=== PATIENT | female | born 1960 | race Caucasian/White ===

== ENCOUNTER 2016-06-06 14:59 | Inpatient (IN) ==
--- NOTE | 2016-06-05 21:40 | Discharge Summary ---
<Chely Armstrong - Last Filed: 06/05/16 21:34> Date of Encounter: 06/05/16 - Discharge Medications Home Medications: Naproxen [Naprosyn] 500 mg PO BID PRN #15 tablet 04/27/15 [Rx] OxyCODONE Immed Rel [Roxicodone 5 MG] 5 mg PO Q6HR PRN #40 tablet 06/05/16 [Rx] Allergies/Adverse Reactions: Allergies acetaminophen [From Tylenol-Codeine #3] Allergy (Verified 04/27/15 15:21) Rash codeine [From Tylenol-Codeine #3] Allergy (Verified 04/27/15 15:21) Rash Primary care physician: Corwin Huizar MD - Patient Status Disposition: Home, Self-Care Condition: Good - Discharge Instructions Instructions: Open Reduction and Internal Fixation of a Hip Fracture (DC) Follow Up With: Corwin Huizar MD [Primary Care Provider] - - Hospital Course Hospital course: Ms. Fay is a 55 year old female - Time Spent with Patient Total time spent providing and/or coordinating discharge services: <Ricco Fletcher Linden - Last Filed: 06/07/16 06:31> Date of Encounter: 06/07/16 Time of Encounter: 06:30 - Discharge Diagnosis (1) Fracture of left hip Priority: Primary Status: Acute Qualifiers: Encounter type: initial encounter Fracture type: closed Qualified Code(s) : S72.002A - Fracture of unspecified part of neck of left femur, initial encounter for closed fracture (2) Hyperlipidemia Priority: Secondary Status: Chronic Qualifiers: Hyperlipidemia type: unspecified Qualified Code(s): E78.5 - Hyperlipidemia , unspecified (3) COPD (chronic obstructive pulmonary disease) Priority: Secondary Status: Chronic Qualifiers: COPD type: emphysema Emphysema type: unspecified Qualified Code(s): J43.9 - Emphysema, unspecified Primary care physician: Corwin Huizar MD - Patient Status Overall status at discharge: patient is progressing back to baseline - Hospital Course Hospital course: Ms. Fay is a 55 year old female The patient had an uneventful postoperative course. They received antibiotics and physical therapy and were discharged in stable condition. There will follow -up in the office in 2 weeks. Discharge June 06 - Time Spent with Patient Total time spent providing and/or coordinating discharge services:
--- NOTE | 2016-06-06 15:07 | History & Physical Report ---
Date of Encounter: 06/06/16 Time of Encounter: 15:06 24 Hour HP Update - Instructions Instructions: If the History and Physical is less than 30 days old and was completed prior to A.M. admission and or procedure and has NOT been updated on calendar day of procedure please complete this update prior to performing procedure. - Update Patient reports changes in Medical Condition: No Changes in assessment/condition: No Changes in Medication: No Preop tests/diagnostics Reviewed: Yes Surgery Remains Indicated: Yes Consent for Planned Operative Procedure(s) Verified: Yes - Pre-Operative Checklist Preoperative Checklist Indicated: No Prophylactic Antibiotic Ordered: Yes Is VTE Prophylaxis Indicated?: Yes
[2016-06-06] MEDS ORDERED: *HR* Propofol 200 MG/20 ML VIAL IVP ONE ×2 (15:08→15:59)
[2016-06-06] MEDS ORDERED: Lidocaine -MPF 2% 2 ML VIAL ONE (15:09)
[2016-06-06 15:45] LABS: Hematocrit 42.6 % (35.3-44.9); Hemoglobin 13.5 g/dL (11.5-15.4)
[2016-06-06] MEDS ORDERED: Famotidine 20 MG/2 ML VIAL IVP ONE (15:47)
--- NOTE | 2016-06-06 15:51 | Anesthesia Evaluation PreOp ---
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: Other (Migraines) Other Medical History: GERD Anesthesia History: No Prior Anesthetic Complications Alcohol Use: none Drug use: none Medications and Allergies Naproxen [Naprosyn] 500 mg PO BID PRN #15 tablet 04/27/15 [Rx] OxyCODONE Immed Rel [Roxicodone 5 MG] 5 mg PO Q6HR PRN #40 tablet 06/05/16 [Rx] Allergies acetaminophen [From Tylenol-Codeine #3] Allergy (Verified 04/27/15 15:21) Rash codeine [From Tylenol-Codeine #3] Allergy (Verified 04/27/15 15:21) Rash - Meds/Allergy Pre-op Review Medications Reviewed: Yes Allergies Reviewed: Yes Beta Blockers on Current Med List: No Anesthesia Results - Labs 06/06/16 15:29 Laboratory Tests 05/31/16 05/31/16 06/06/16 11:52 11:52 15:29 Hgb 13.5 Hct 42.6 Plt Count 361 Sodium 141 Potassium 3.7 Creatinine 0.77 - Imaging EKG: report reviewed (SR) Anesthesia Exam O2 Sat Height 1.68 m Weight 63.503 kg Height: 5'6 Weight: 140 lbs NPO (# of Hours): MN - HEENT Pupil (Motor): Pupils equal, EOMI Mallampati: II Teeth: Edentulous Oral Opening: Greater than 3 - BRAKE OPERATOR HELPER LOC: Oriented BRAKE OPERATOR HELPER Motor: Normal RUE, Normal LUE, Normal RLE, Normal LLE, Normal Face BRAKE OPERATOR HELPER Sensory: Normal: RUE, LUE, RLE, LLE, Face - Cardiac Rhythm: Regular Murmur: None JVD: No Carotid Bruit: No - Pulmonary Breath Sounds: bilateral Clear Respiratory Effort: Symmetrical Anesthesia Assess/Plan ASA Score: 2 Modified Fairview Scale for Level of Consciousness: Cooperative, oriented, and tranquil Anesthetic Plan: General Monitoring Plan: Standard Monitors Recovery Plan: PACU (Discussed GA, agrees to proceed)
[2016-06-06] MEDS ORDERED: *HR* FentaNYL (PF) 100 MCG/2 ML VIAL ONE ×2 (15:58→16:42)
[2016-06-06] MEDS ORDERED: Lidocaine -MPF 4% 5 ML AMPUL ONE (15:59)
[2016-06-06] MEDS ORDERED: *HR* Midazolam HCl 2 MG/2 ML VIAL ONE (15:59)
[2016-06-06] MEDS ORDERED: Ringers Solution, Lactated 1,000 ML IVC SCH (16:00)
[2016-06-06] MEDS ORDERED: Albuterol 2.5 MG/3 ML NEBULIZER IH ONE (16:04)
[2016-06-06] MEDS ORDERED: CeFAZolin Pre 2,000 MG/100 ML 2,000 MG/100 ML BAG IVPB ONE (16:09)
[2016-06-06] MEDS ORDERED: *HR* Succinylcholine 200 MG/10 ML VIAL IVP ONE (16:35)
[2016-06-06] MEDS ORDERED: *HR* Morphine 10 MG/ML VIAL ONE (16:42)
[2016-06-06] MEDS ORDERED: Dexamethasone 4 MG/ML VIAL ONE (16:52)
[2016-06-06] MEDS ORDERED: Ondansetron 4 MG/2 ML VIAL ONE (16:52)
--- NOTE | 2016-06-06 17:08 | Orthopedic Operative Note ---
Date of procedure: 06/06/16 Pre-op diagnosis: Left hip fracture Post-op diagnosis: same Procedure: Procedure: Left hip open reduction intramedullary nail fixation Estimated blood loss: 50 cc Hardware: 11 x 1 30 Synthes TFN, 85 helical blade, 36 distal locking bolt Operative procedure: The patient was brought to the operating room and placed on the operating room table. After general anesthesia was administered the well leg was place in the well leg fairchild and the operative leg was placed in the fracture leg fairchild. All pressure points were padded appropriately. The operative extremity was prepped and draped in the sterile surgical fashion patient received IV antibiotic prior to skin incision. A standard direct lateral approach was made over the entry point of the greater trochanter, the incision was made through the skin and subcutaneous tissue hemostasis was obtained with Bovie cautery. Using careful sharp dissection the fascia was identified and incised, flouroscopic assistance was used to identify the entry point. The guidepin was placed at the entry point using fluroscopic assistance, it was over reamed with the proximal reamer. The 11 x 1 30 nail was placed through the entry hole, across the fracture site into the distal fragment. the position was confirmed with fluroscopy. A guide pin was placed through the proximal locking guide from the lateral femur through the nail across the fracture site into the femoral head, it was over reamed with the reamer. The 85 helical blade was placed over the guide pin through the nail into the femoral head, locked in place with the proximal locking bolt. 36 mm Distal locking bolt was placed through the distal locking guide. position of hardware and fracture reduction found to be acceptable with fluroscopic assistance. The wound was irrigated. Fascia was closed with a running #2 PDS suture. The deep tissue was irrigated and closed deep with #1 PDS suture superficially with 0 PDS suture and skin was closed with Dermabond and jenn. The patient was placed in a sterile dressing The patient was extubated and transferred to the recovery room in stable condition. Anesthesia: GETA Surgeon: Ricco Fletcher Condition: stable Disposition: PACU
[2016-06-06] MEDS ORDERED: *HR* HYDROmorphone (PF) 1 MG/ML SYRINGE IVP PRN (17:25)
[2016-06-06] MEDS ORDERED: *HR* Enoxaparin 30 MG/0.3 ML SYRINGE SQ SCH ×3 (18:00→20:45)
--- NOTE | 2016-06-06 18:14 | Anesthesia Evaluation Post Op ---
Date of Encounter: 06/06/16 Time of Encounter: 18:12 - Vital Signs Vital Signs: Vital Signs/O2 Sat, Most Current Temp Pulse Resp BP Pulse Ox 98.7 F 93 16 110/62 94 L 06/06/16 18:03 06/06/16 18:03 06/06/16 18:03 06/06/16 18:03 06/06/16 18:03 - Lungs Lungs: Clear Ascult./Percussion - Airway Airway: Non-obstructed - Cardiovascular Regular Rate - Mental Status Mental Status: Alert & Oriented, Answers Appropriately - Pain Pain Scale: 2 Pain Scale used: Numeric (1 - 10) - Nausea Vomiting Nausea Vomiting: Not Present - Hydration Hydration: Ice chips, Has not voided - Discharge PostOp Status: Transfer Patient to floor
[2016-06-06] MEDS ORDERED: *HR* OxyCODONE Immed Rel 5 MG TABLET PO PRN ×2 (18:43)
[2016-06-06] MEDS ORDERED: Naloxone 0.4 MG/ML INJ IVP PRN (18:43)
[2016-06-06] MEDS ORDERED: ceFAZolin 2,000 MG in D5% in Water 100 ML IVPB SCH (21:00)
[2016-06-06 21:41] VITALS: BP 115/66
== END 2016-06-06 23:10 | disposition home or self-care (01) | DRG 308 ==
LOC: SAMDAY 14:59 → 3NENU 18:43
PROVIDERS: ADMIT Orthopaedic Surgery; ATTEND Orthopaedic Surgery

== ENCOUNTER 2018-03-10 10:58 | Observation (INO) ==
[2018-03-10] MEDS ORDERED: Naloxone 0.4 MG/ML INJ IVP PRN (13:34)
--- NOTE | 2018-03-10 13:40 | Internal Med History&Physical ---
<Hebert Kuhn S - Last Filed: 03/10/18 13:36> Date of Encounter: 03/10/18 Time of Encounter: 13:36 Internal Medicine - H&P: HPI Chief complaint: overdose Admitted From: Hospital to Hospital Transfer Plans for Post Hospital Care: Home History of present illness: Ms. Fay is a 57 year old female from [facility] with a PMH of COPD, kidney stones, migraines, bipolar, depression, GERD. She was brought into the ER by EMS after being found lying in a road. The pt was apperently banging on doors as per records and they found her in the middle of the street. They administered Narcan and then EMS gave more Narcan on the way to the hospital. The narcan didn't really do much as per the records. She apperently was found with an empty bottle of Fiourecet and had been drinking all night, as per nursing. The pt had a nasal trumpet put in and was put in a c-collar. EMS doesn't report any trauma. There is documentation that the pt was reportedly trying to kill herself and "just wants to ." There is documentation that she deliberately took an OD. The pt is obtunded when I go to see her. She is unable to answer any questions, doesn't wake to stimuli. All the info from the H&P as above is gathered from nursing and from chart review. Past Med Surg Social Fam HX - Past Medical History Medical history: COPD, kidney stones, migraine Additional medical history: NEUROPATHY, Psychiatric history: bipolar, depression - Past Surgical History Surgical History: orthopedic, other Additional surgical history: LEFT HIP REPLACEMENT, LEFT KNEE SURG - Social History Smoking Status: Current every day smoker Smokeless Tobacco Status: No Alcohol use: none Drug use: none - Family History Mother Hx Family Cancer: Yes (BREAST) Hx Family Endocrine Disorder: Yes (DMII) Internal Medicine - H&P: Meds Albuterol Sulfate [Albuterol Inhaler] 2 puff IH Q4H PRN 12/04/16 [History] Butalb/Acetaminophen/Caffeine [Fioricet 50-300-40 mg Capsule] 1 each PO PRN 12/04/16 [History] Gabapentin [Neurontin] 100 mg PO TID 12/04/16 [History] Loratadine [Allergy Relief] 10 mg PO DAILY 12/04/16 [History] Nitroglycerin [Nitrostat] 0.4 mg SL PRN 12/04/16 [History] Omeprazole [PriLOSEC] 40 mg PO DAILY 12/04/16 [History] Oxybutynin [Ditropan] 5 mg PO HS 12/04/16 [History] Pantoprazole Sodium 40 mg PO DAILY 12/04/16 [History] Paroxetine HCl [Paxil] 40 mg PO 12/04/16 [History] Ranitidine HCl [Acid Truss Builder] 150 mg PO DAILY 12/04/16 [History] Sucralfate [Carafate] 1 gm PO 0730,1630 12/04/16 [History] Tramadol HCl [Ultram] 50 mg PO TID PRN 12/04/16 [History] clonazePAM [Klonopin] 1 mg PO TID 12/04/16 [History] Atorvastatin [Lipitor] 40 mg PO HS 03/10/18 [History] Gabapentin [Neurontin] 03/10/18 [History] Mometasone/Formoterol [Dulera 100 Mcg/5 Mcg Inhaler] 03/10/18 [History] Naproxen 03/10/18 [History] Promethazine [Phenergan] 25 mg PO Q8HR 03/10/18 [History] Ropinirole HCl [Requip] 0.25 mg PO 03/10/18 [History] Allergy/AdvReac Type Severity Reaction Status Date / Time aripiprazole [From Abilify] Allergy See Verified 03/10/18 04:01 Comments bupropion Allergy Nausea Verified 03/10/18 04:01 codeine Allergy Rash Verified 03/10/18 04:01 [From Tylenol-Codeine #3] ROS unobtainable: due to mental status All Systems PM: A 10-system review of systems was performed and is negative for pertinent fi ndings except as documented above in the HPI. - Constitutional Vitals: Temp Pulse Resp Pulse Ox 98.6 F 63 16 98 03/10/18 12:52 03/10/18 12:52 03/10/18 12:52 03/10/18 12:52 General appearance: Present: A&O X 0, disheveled. Absent: answers questions appropriately Exam: x - Head Head exam: Present: normal inspection - Respiratory Respiratory exam: Present: CTAB - Cardiovascular Cardiovascular exam: Present: RRR, +S1, +S2 - GI/Abdominal GI/Abdominal exam: Present: soft, no peritoneal signs. Absent: tenderness - Neurological Exam Neurological exam: Present: altered. Absent: alert - Psychiatric Psychiatric exam: Present: suicidal ideation - Skin Skin exam: Present: intact, warm - Assessment and plan (1) Suicide attempt by multiple drug overdose Current Visit: Yes Status: Acute Assessment and plan: Pt found in street this morning by EMS - reportedly said she was trying to kill herself - reported to have taken entire bottle of Fioricet with alcohol EKG in the ER was negative for QT prolongation, ischemia - initial ABG: pH 7.26, pCO2 60, pO2 82, HCO3 27 Currently on BiPAP, settings 14/6 - O2 sat 98% on 30% FiO2 UDS showed (+) barbituates - salicylates <2.5 , acetominopehn <10 - Ethyl alcohol [address] negative for acute intracranial abnormality Plan - continue BiPAP , wean as tolerated - repeat ABG - repeat salicylates, acetominophen level - consider psych consult once medically stable - social work consulted Qualifiers: Encounter type: initial encounter Qualified Code(s): T50.902A - Poisoning by unspecified drugs, medicaments and biological substances, intentional self- harm, initial encounter (2) Aspiration pneumonitis Current Visit: Yes Status: Suspected Assessment and plan: Suspected. CXR at [facility] - asymmetric perihilar interstitial opacities , may represent pulmonary edema - superimposed penumonia cannot be excluded Aspiration pneumonitis vs pneumonia - clinically the pt doesn't appear to have infxn , she has no white count and she is afebrile Plan: - continue to monitor the pt clinically - if infxn is suspected , will start Unasyn IV (3) Migraines Current Visit: No Status: Chronic Assessment and plan: On fioricet - chronic - will hold this medication Qualifiers: Migraine type: unspecified Status migrainosus presence: without status migrainosus Intractability: not intractable Qualified Code(s): G43.909 - Migraine, unspecified, not intractable, without status migrainosus (4) GERD (gastroesophageal reflux disease) Current Visit: No Status: Chronic Assessment and plan: Chronic - on sucralfate and pantoprazole Qualifiers: Esophagitis presence: esophagitis presence not specified Qualified Code(s): K21.9 - Gastro-esophageal reflux disease without esophagitis (5) Anxiety and depression Current Visit: No Status: Chronic Assessment and plan: On klonopin, paroxetine - chronic - see plan as above for overdose (6) Acute respiratory failure Current Visit: Yes Status: Acute Assessment and plan: initial ABG: pH 7.26, pCO2 60, pO2 82, HCO3 27 Plan: - rechecking ABG - see plan as per above for overdose Qualifiers: Respiratory failure complication: hypercapnia Qualified Code(s): J96.02 - Acute respiratory failure with hypercapnia (7) Seasonal allergies Current Visit: No Status: Chronic Assessment and plan: On loratadine - chronic - holding home meds (8) COPD (chronic obstructive pulmonary disease) Current Visit: No Status: Chronic Assessment and plan: NOT in acute exacerbation - on albuterol Qualifiers: COPD type: emphysema Emphysema type: unspecified Qualified Code(s): J43.9 - Emphysema, unspecified (9) Altered mental status Current Visit: Yes Status: Acute Assessment and plan: Secondary to drug overdose Qualifiers: Altered mental status type: somnolence Qualified Code(s): R40.0 - Somnolence (10) Tobacco abuse Current Visit: No Status: Chronic Assessment and plan: Will offer NRT and counseling once awake - Time Spent With Patient Total time spent is greater than 50% in coordination of care (as documented) at patient's floor/unit and/or counseling patient: less than 15 minutes <Ney Francisco - Last Filed: 03/10/18 15:41> Date of Encounter: 03/10/18 Time of Encounter: 15:10 Internal Medicine - H&P: HPI History of present illness: Ms. Fay is a 57 year old female All Systems PM: A 10-system review of systems was performed and is negative for pertinent findings except as documented above in the HPI. - Constitutional Vitals: Temp Pulse Resp Pulse Ox 98.6 F 63 16 98 03/10/18 12:52 03/10/18 12:52 03/10/18 12:52 03/10/18 12:52 - Assessment and plan (1) Acute respiratory failure Current Visit: Yes Status: Acute Qualifiers: Respiratory failure complication: hypercapnia Qualified Code(s): J96.02 - Acute respiratory failure with hypercapnia (2) Altered mental status Current Visit: Yes Status: Acute Qualifiers: Altered mental status type: somnolence Qualified Code(s): R40.0 - Somnolence (3) Suicide attempt by multiple drug overdose Current Visit: Yes Status: Suspected Qualifiers: Encounter type: initial encounter Qualified Code(s): T50.902A - Poisoning by unspecified drugs, medicaments and biological substances, intentional self- harm, initial encounter (4) COPD (chronic obstructive pulmonary disease) Current Visit: Yes Status: Chronic Qualifiers: COPD type: emphysema Emphysema type: unspecified Qualified Code(s): J43.9 - Emphysema, unspecified (5) Migraines Current Visit: No Status: Chronic Qualifiers: Migraine type: unspecified Status migrainosus presence: without status migrainosus Intractability: not intractable Qualified Code(s): G43.909 - Migraine, unspecified, not intractable, without status migrainosus (6) GERD (gastroesophageal reflux disease) Current Visit: No Status: Chronic Qualifiers: Esophagitis presence: esophagitis presence not specified Qualified Code(s): K21.9 - Gastro-esophageal reflux disease without esophagitis (7) Anxiety and depression Current Visit: No Status: Chronic (8) Seasonal allergies Current Visit: No Status: Chronic (9) Aspiration pneumonitis Current Visit: Yes Status: Suspected (10) Tobacco abuse Current Visit: No Status: Chronic - Time Spent With Patient Total time spent is greater than 50% in coordination of care (as documented) at patient's floor/unit and/or counseling patient: - Attending Attestation I saw evaluated and examined this patient and my medical decision-making was reviewed with the Resident Physician, Hebert Kuhn. I agree with the documented findings, disposition and treatment plan as described except to any changes set forth below. We independently had [id number] contact with the patient. Patient is currently somnolent. Awakes to sternal rub. Not following commands or answering questions at this time. She did ask where she is at. She does not remember any events prior. History has been obtained through review of ED re cords. Patient apparently was brought to the ER after being found lying on the road with a bottle of Fioricet. ED documentation States that patient was reportedly trying to kill herself and had mentioned that she " just wants to ". However no pink slip has been found on the patient's chart. Currently she is to up tended to answer questions about suicidal ideation. On exam, patient is very somnolent. Has BiPAP mask in place. Heart sounds are normal. Breath sounds are normal. No pedal edema noted. Abdomen is soft, nontender. Acute metabolic encephalopathy: Likely medication related. From drug overdose. Continue to monitor vital signs closely. On BiPAP. IV fluids. Acute hypoxic and hypercarbic respiratory failure: Due to decreased mental status from drug overdose. Continue BiPAP. PH is improving. PCO2 and PO2 are also improving. Suspected suicidal ideation: Suicidal ideation documented on chart but patient has not been pink slip. Currently she is too obtunded to answer questions. We will monitor her closely. Once she wakes up, if she continues to have suicidal ideation, will place sitter at bedside and consult psychiatry. Aspiration pneumonitis: Chest x-ray shows interstitial opacities. However she has not had any fevers and her WBC count is normal. Will monitor her closely. She does develop fevers, we will start her on antibiotics. High risk for complications at this time. DVT prophylaxis with subcutaneous heparin
[2018-03-10 14:16] LABS: Acetaminophen < 10 mcg/mL (10-20); Salicylate < 2.5 mg/dL (15.0-30.0)
[2018-03-10] MEDS: Ringers Solution, Lactated 1,000 ML IVC SCH (16:00)
[2018-03-10] MEDS: *HR* Heparin 5,000 UNIT/ML VIAL SQ SCH (17:49)
[2018-03-11] MEDS: Ringers Solution, Lactated 1,000 ML IVC SCH (04:11)
[2018-03-11 04:43] LABS: Basophils % 0.4 %; Eosinophils # 0.1 K/mcL (0.0-0.6); Eosinophils % 1.2 %; Hematocrit 34.5 % (35.3-44.9); Hemoglobin 10.2 g/dL (11.5-15.4); Immature Granulocytes % 0.1 % (0-4); Lymphocytes # 2.8 K/mcL (0.6-4.6); Lymphocytes % 40.2 %; Mean Corpuscular HGB Conc 29.6 g/dL (31.6-35.5); Mean Corpuscular Hemoglobin 26.6 pg (28.0-33.3); Mean Corpuscular Volume 89.8 fL (83.0-100.0); Mean Platelet Volume 10.5 fL (9.4-12.4); Monocytes # 0.4 K/mcL (0.0-1.3); Monocytes % 5.2 %; Neutrophils # 3.6 K/mcL (1.6-8.9); Platelet Count 201 K/mcL (140-400); Red Blood Count 3.84 M/mcL (3.82-4.97); Red Cell Distribution Width 19.1 % (11.5-14.5); Segmented Neutrophils % 52.9 %
[2018-03-11 05:02] LABS: BUN/Creatinine Ratio 11 (6-26); Blood Urea Nitrogen 7 mg/dL (6-20); Calcium 8.8 mg/dL (8.6-10.3); Carbon Dioxide 28 mEq/L (23-29); Chloride 113 mEq/L (98-107); Glucose 83 mg/dL (70-105); Osmolality,Calculated 295 (280-300); Sodium 144 mEq/L (136-145); eGFR For Non-African Americans > 60 (> 60)
[2018-03-11] MEDS: *HR* Heparin 5,000 UNIT/ML VIAL SQ SCH (05:52)
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
[2018-03-11] MEDS ORDERED: Nicotine 14 MG PATCH.TD24 TD SCH (09:00)
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
[2018-03-11 11:51] VITALS: BP 113/74
--- NOTE | 2018-03-12 14:08 | Electrocardiograph Report ---
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
--- NOTE | 2018-03-12 14:59 | Electrocardiograph Report ---
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
== END 2018-03-11 14:27 | disposition home or self-care (01) ==
LOC: 2NNU → SUATTDRO 12:27
PROVIDERS: ADMIT Internal Medicine; ATTEND Internal Medicine